=== PATIENT | female | born 1940 | race Caucasian/White ===

== ENCOUNTER 2019-01-22 15:28 | Emergency (ER) | payer MEDICARE, BC ==
[~2019-01-22] VITALS: Ht 165.1 cm; Wt 105.4 kg
[2019-01-22] MEDS ORDERED: OXYcodone/APAP 5/325MG TABLET PO ONE (16:00)
[2019-01-22] MEDS ORDERED: OXYcodone/APAP 5/325MG TABLET ONE (16:05)
[2019-01-22 17:08] VITALS: BP 128/84
== END 2019-01-22 17:15 | disposition home or self-care (01) ==
LOC: ED 16:45
DX: M17.11 Unilateral primary osteoarthritis, right knee (principal); K21.9 Gastro-esophageal reflux disease without esophagitis; E11.9 Type 2 diabetes mellitus without complications
CPT/HCPCS: 99283